=== PATIENT | male | born 1950 | race Caucasian/White ===

== ENCOUNTER 2023-10-31 16:12 | Outpatient (REF) | payer MEDICARE, SELFPAY ==
[2023-10-31 17:28] LABS: MANUAL DIFF FLAG NO
[2023-10-31 18:05] LABS: Basophils Percent Auto 0.3 % (0-2); Eosinophils Absolute Auto 0.2 X10*3/uL (0.0-0.4); Eosinophils Percent Auto 3.3 % (0-4); Hematocrit 40.6 % (42.0-52.0); Hemoglobin 13.5 g/dl (14.0-18.0); Imm Gran Abs Auto 0.01 X10*3/uL (0.00-0.03); Imm Gran Pct Auto 0.2 % (0.0-0.4); Lymphocytes Absolute Auto 2.6 X10*3/uL (1.2-4.9); Lymphocytes Percent Auto 45.3 % (20-40); Mean Corpuscular HGB Conc 33.3 g/dl (31.0-36.0); Mean Corpuscular Hemoglobin 30.6 pg (27.0-33.0); Mean Corpuscular Volume 92.1 fL (80.0-98.0); Mean Platelet Volume 10.2 fL (9.4-12.4); Monocytes Absolute Auto 0.3 X10*3/uL (0.1-1.2); Monocytes Percent Auto 5.9 % (2-11); Neutrophils Absolute Auto 2.6 x10*3/uL (2.0-8.3); Platelet Count 150 X10*3/uL (160-400); Red Blood Count 4.41 X10*6/uL (4.60-5.80); Red Cell Distribution Width 14.1 % (11.0-16.0); White Blood Count 5.8 X10*3/uL (4.8-10.8)
[2023-10-31 18:50] LABS: Alanine Aminotransferase 26 U/L (0-40); Albumin Level 4.4 g/dL (3.5-5.0); Alkaline Phosphatase 82 U/L (39-117); Anion Gap 11 (12-20); Aspartate Amino Transferase 22 U/L (5-37); Blood Urea Nitrogen 16 mg/dL (9-16); Calcium 9.7 mg/dL (8.4-10.2); Carbon Dioxide 25 mmol/L (22-29); Chloride 108 mmol/L (96-108); Cholesterol 95 mg/dL (<200); Estimated Glomerular Filt Rate > 60; Glucose Random 81 mg/dL (60-115); HDL Cholesterol 37 mg/dL (>40); LDL Cholesterol Calculated 21 mg/dL (<100); Potassium 4.3 mmol/L (3.3-5.1); Sodium 140 mmol/L (135-145); Total Protein 7.7 g/dL (6.5-8.0); Triglycerides 185 mg/dL (<150)
[2023-10-31 18:51] LABS: TSH reflex Free T4 1.78 uIU/mL (0.32-4.0)
[2023-10-31 19:25] LABS: PSA,Total (Free>4and<10) 0.78 ng/mL (0.00-4.00)
[2023-11-01 04:58] LABS: ~HepC Num1 0.15 S/CO (0.00-0.79); ~Hepatitis C Antibody Nonreactive (Nonreactive)
[2023-11-01 05:17] LABS: Estimated Average Glucose 126 mg/dL
== END 2023-10-31 16:13 | disposition home or self-care (01) ==
LOC: HO.CHCLDS 16:12
PROVIDERS: Visit Provider Internal Medicine
DX: E78.2 Mixed hyperlipidemia (principal); Z12.5 Encounter for screening for malignant neoplasm of prostate; Z13.1 Encounter for screening for diabetes mellitus
CPT/HCPCS: 36415; 80053; 80061; 83036; 84153; 84443; 85025; 86803

== ENCOUNTER 2024-03-08 10:13 | Outpatient (AMB) | payer OTHER, SELFPAY ==
--- NOTE | 2024-03-08 08:01 | A.OFFVIS_ITS ---
Intake Visit Reasons: LDCT Allergies No Known Allergies [No Known Allergies*] Allergy (Unverified 11/07/19 19:07) none Allergy (Unknown, Uncoded 07/04/18 00:00) HPI HPI LDCT: Details: Initial visit for this 73yo smoker with a 30PYH. Patient started smoking at age 13 for 60 years at 1/2ppd. . Reports rare marijuana use. Denies second hand smoke exposure. Denies exposure to chemicals or substances like asbestos. . Denies known family history of lung cancer. Denies personal history of cancers. . Denies chest CT in last year. Prior LDCT 09/05/16 Lung RADS 2 . Denies recent travel outside the [place]. Denies recent respiratory illness or recent hospitalization for respiratory issues. . Denies fever, chills, new/worsening cough, hemoptysis, hoarseness or dysphagia. Denies significant chest pain, significant dyspnea or unintentional weight loss. Patient Lung Cancer Screening Questionnaire reviewed with patient by provider. . Shared Decision Making Completed. Patient meets criteria. Discussed in detail with patient, the risk vs benefit of LDCT screening. Patient consents to proceed with scan. Discussed smoking cessation. [facility] Medical History (Updated 03/08/24 @ 10:32 by Marie Medina PA-C) Hyperlipidemia Hypertension Mild emphysema Personal history of nicotine dependence Surgical History (Updated 02/08/24 @ 08:47 by Marie Medina PA-C) History of colonoscopy Social History (Updated 03/08/24 @ 10:33 by Marie Medina PA-C) Alcohol intake: current Alcohol intake frequency: does not drink Patient Tobacco Use Status: Current everyday Tobacco user Years Smoked: (onset 12yo, 1/2ppd x 60yrs, 30pyh) Assessment & Plan Assessment & Plan (1) Personal history of nicotine dependence: Comment: (onset 12yo, 1/2ppd x 60yrs, 30pyh) Code(s): Z87.891 - Personal history of nicotine dependence Category: Medical Plan: - SDM visit completed today in office. - Patient meets criteria for LDCT for lung cancer screening purposes and is asymptomatic. - Smoking cessation counseling offered. Patients can always call [phone]. - Will arrange for a LDCT scan of the chest for screening purposes at [facility]. - Risks, benefits, and alternatives were discussed in detail and the patient agrees to proceed. - Risks discussed include but are not limited to: radiation exposure, anxiety during testing and while awaiting results, false negatives, false positives and possibility of additional intervention such as further imaging or surgical procedures for benign disease. - Benefits are obviously detection of lung cancer at an early stage which can lead to improved outcomes. - Discussed the importance of screening program compliance with adherence to yearly LDCT scan as scheduled - or sooner interval scans for personalized screening regimen. - Discussed follow up plan. Our office will send a letter discussing results and if needed set up phone call and office visit based on CT findings. - Patient educated on results categorization and the management decisions for suspicious findings potentially found on the screening LDCT scan. Any patient with a Lung RADS score of 3 or 4 will be reviewed by a multidisciplinary team at [facility] to form a plan of action in regards to scan findings. - If further work up is warranted for a suspicious lung finding this will be followed by the Lung Cancer Screening program in conjunction with the Thoracic Surgery Department at [facility]. - A copy of the office note and LDCT will be sent to the patient's PCP - as well as documentation on any associated further plans of care. - Incidental findings on LDCT are the PCP's responsibility. These findings are indicated with an S finding on the LDCT Assessment. A note discussing the findings will be sent to the PCP who is then responsible for further management. - All questions answered.? Coding Level of Care Code Lung Cancer Screening G0296 Diagnoses Personal history of nicotine dependence Z87.891
== END 2024-03-08 11:07 | disposition home or self-care (01) ==
PROVIDERS: Visit Provider Physician Assistant Medical
DX: Z87.891 Personal history of nicotine dependence (principal)
CPT/HCPCS: G0296

== ENCOUNTER 2024-03-08 10:45 | Outpatient (REF) | payer OTHER, SELFPAY ==
--- NOTE | ~2024-03-08 | CT_ITS ---
CLINICAL HISTORY: Z87.891 - Personal history of nicotine dependence CT lung cancer screening (LDCT) Comparison: CT/SR - CT CHEST SCREENING - 09/05/16 14:14 EDT Technique: Axial CT images of the chest using low-dose technique. Referring provider counseled the patient on shared decision-making for LDCT screening. Additional counseling was provided on smoking cessation. Effective radiation dose total: DLP 39.2 mGycm, CTDIvol 1.2 mGy. Findings: The prior CT report is not available for review. Lung: Mild emphysema. 2 mm nodule of the left upper lobe series 4, image 30. Coronary artery calcifications: Moderate Limited upper abdomen: Unremarkable Other: None Impression: LungRADS 2 - Benign Appearance: Continue annual screening with low dose Chest CT in 12 months. ##L2# Category 1: Normal; continue annual screening Category 2: Benign appearance or behavior, continue annual screening Category 3: Probably benign, [address] recommended Category 4A: Suspicious, [address] recommended; may consider PET/CT Category 4B: Suspicious, Additional diagnostics and/or tissue sampling recommended Category 4X: Suspicious, Additional diagnostics and/or tissue sampling recommended Category 0: Recalls (incomplete screen due to Incomplete coverage, Noise, Respiratory motion, Expiration, Obscured by acute abnormality) This document has been electronically signed by: Maria Luisa Cohen MD on 03/08/2024 17:13:49
== END 2024-03-08 10:46 | disposition home or self-care (01) ==
LOC: HO.CT 10:45
PROVIDERS: Visit Provider Physician Assistant Medical
DX: Z12.2 Encounter for screening for malignant neoplasm of respiratory organs (principal); Z87.891 Personal history of nicotine dependence
CPT/HCPCS: 71271; G0296

== ENCOUNTER → 2024-03-08 10:51 | Outpatient (BNV) | payer OTHER, SELFPAY | PROVIDERS: Visit Provider Nuclear Medicine | DX: Z87.891 Personal history of nicotine dependence (principal) | CPT/HCPCS: 71271 ==

== ENCOUNTER 2024-12-27 18:46 | Emergency (ER) | payer OTHER, SELFPAY ==
--- OUTSIDE RECORDS SUMMARY | 2024-12-25 19:50 | XMS_ITS | Continuity of Care Document ---
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 Name Role Phone Brianna Newby MD, Sandro Primary Care Phys ician [place] [facility] [place] 12/25/24 - 12/25/[address] [id number]- Encounter Diagnosis Weakness(Final) - 12/25/24 Discharge Disposition: A-D/C Home Attending Physician: Pastor Hernandez DO Admitting Physician: Pastor Hernandez DO Referring Physician: Not on Staff, Referring MD Encounter Type: Disch ES Allergies, Adverse Reactions, Alerts No Known Allergies Immunizations Given and Recorded Vaccine Date Status Refusal Reason SARS-CoV-2 (COVID-19) mRNA BNT-162b2 vac 10/27/20 Recorded SARS-CoV-2 (COVID-19) mRNA BNT-162b2 vac 10/05/20 Recorded zoster vaccine, inactivated 03/27/19 Recorded zoster vaccine, inactivated 11/29/18 Recorded pneumococcal 23-valent vaccine 11/29/18 Recorded pneumococcal 23-valent vaccine 12/07/01 Given Zoster Vaccine Live 07/28/16 Recorded Zoster Vaccine Live 1 12/23/14 Given pneumococcal 13-valent vaccine 04/27/16 Recorded influenza virus vaccine, inactivated 11/16/15 Doc rded influenza virus vaccine, inactivated 2 12/23/14 Gi amairani influenza virus vaccine, inactivated 3 11/26/13 Gi amairani influenza virus vaccine, inactivated 4 12/16/10 Gi amairani influenza virus vaccine, inactivated 5 11/09/09 Gi amairani influenza virus vaccine, inactivated 6 02/26/09 Gi amairani influenza virus vaccine, inactivated 7 12/07/07 Gi amairani influenza virus vaccine, inactivated 12/01/06 Give n influenza virus vaccine, inactivated 8 01/07/03 Gi amairani influenza virus vaccine, inactivated 9 01/07/95 Gi amairani tetanus/diphtheria/pertussis, acel(Tdap) 10/15/15 Recorded tetanus/diphtheria/pertussis, acel(Tdap) 03/29/11 Given hepatitis B adult vaccine 11 12/07/07 Given hepatitis B adult vaccine 12 07/02/07 Given hepatitis B adult vaccine 13 04/30/07 Given hepatitis B adult vaccine 14 12/07/04 Given tetanus-diphtheria toxoids (Td) 15 12/07/01 Given 1Result Comment: [12/23/2014] ORDERED BY DR. SOOD 2Result Comment: [12/23/2014] ORDERED BY DR. SOOD 3Result Comment: [11/27/2013] Ordered by Michael 4Anicole Note: VIS 09/14/10 GIVEN 5Admin Note: ADMINISTERED BY R.NCollette FLUZOWENDY 6Admin Note: --VIS 11/21/08 GIVEN 7Admin Note: 08/19/2008 given 8Admin Note: given by another practice 9Admin Note: ADMINISTERED BY RN 10Admin Note: boostrix ([facility]) VIS 01/08/08 11Admin Note: VIS 09/06/06 given 12Admin Note: VIS 08/20 #2 13Admin Note: VIS 08/20 #1 14Admin Note: ADMINISTERED BY RN 15Admin Note: ADMIN. BY RN Medications Acetaminophen 0 Refills, Maintenance, 03/03/20 2:46:00 PM EST, Partial fill upon patient request if the prescription is for a schedule II opioid drug. Start Date: 03/03/20 Status: Ordered Medication Dispense Status: Completed Total Allowed Fills: 1 Fills Dispensed: 0 Aerochamber Maintenance, 03/03/20 2:46:00 PM EST, Supply Start Date: 03/03/20 Status: Ordered Medication Dispense Status: Completed Total Allowed Fills: 1 Fills Dispensed: 0 aspirin 81 mg oral delayed release tablet 81 mg, 1, tablet, By Mouth, Daily, # 30 tablet, Refills 0, Maintenance, 03/03/20 2:47:00 PM EST, Partial fill upon patient request if the prescription is for a schedule II opioid drug. Start Date: 03/03/20 Status: Ordered Medication Dispense Status: Completed Quantity: 30.0 Unit: tablet Total Allowed Fills: 1 Fills Dispensed: 0 Colace sodium 100 mg oral capsule 100 mg, 1, capsule, By Mouth, 2 times a day, PRN, # 60 capsule, Refills 2, Tot. Refills 2, Maintenance, for constipation, 07/14/15 10:10:33 AM EDT, Route to Pharmacy Electronically, [facility]/pharmacy #[id number] Start Date: 07/14/15 Stop Date: 10/12/15 Status: Ordered Medication Dispense Status: Completed Quantity: 60.0 Unit: capsule Total Allowed Fills: 3 Fills Dispensed: 0 Combivent Respimat CFC free 100 mcg-20 mcg/inh inhalation aerosol 1 puffs, Inhalation, 4 times a day, PRN Wheezing/Shortness of Breath, # 1 each, 5 Refills, Maintenance, 02/24/15 10:32:46 AM EST, Aerosol, [facility]/pharmacy #[id number], 1 puffs Inhalation 4 times a day,x30 days,PRN:Wheezing/Shortness of Breath Start Date: 02/24/15 Stop Date: 08/23/15 Status: Ordered Medication Dispense Status: Completed Quantity: 1.0 Unit: each Total Allowed Fills: 6 Fills Dispensed: 0 cyclobenzaprine 10 mg oral tablet 10 mg, 1, tablet, By Mouth, Daily at bedtime, PRN, # 30 tablet, Refills 2, Tot. Refills 2, Maintenance, as needed for spasm/pain in neck, 07/14/15 9:44:12 AM EDT, Route to Pharmacy Electronically, [facility]/pharmacy #[id number] Start Date: 07/14/15 Stop Date: 10/12/15 Status: Ordered Medication Dispense Status: Completed Quantity: 30.0 Unit: tablet Total Allowed Fills: 3 Fills Dispensed: 0 docusate sodium 100 mg oral capsule 1 capsule = 100 mg, By Mouth, 2 times a day, PRN for constipation, # 60 capsule, 0 Refills, Maintenance, 03/03/20 2:47:00 PM EST, Capsule, Partial fill upon patient request if the prescription is for a schedule II opioid drug. Start Date: 03/03/20 Status: Ordered Medication Dispense Status: Completed Quantity: 60.0 Unit: capsule Total Allowed Fills: 1 Fills Dispensed: 0 famotidine 20 mg oral tablet 20 mg, 1, tablet, By Mouth, 2 times a day, Refills 0, Maintenance, 03/03/20 2:48:00 PM EST, Partial fill upon patient request if the prescription is for a schedule II opioid drug. Start Date: 03/03/20 Status: Ordered Medication Dispense Status: Completed Total Allowed Fills: 1 Fills Dispensed: 0 Fiber Tabs 0 Refills, Maintenance, 03/03/20 2:49:00 PM EST, Partial fill upon patient request if the prescription is for a schedule II opioid drug. Start Date: 03/03/20 Status: Ordered Medication Dispense Status: Completed Total Allowed Fills: 1 Fills Dispensed: 0 gabapentin 100 mg oral capsule 100 mg, 1, capsule, By Mouth, 3 times a day, # 90 capsule, Refills 0, Tot. Refills 0, Maintenance, 07/07/24 4:00:00 PM EDT, Route to Pharmacy Electronically, [facility], Partial fill upon patient request if the prescription is for a schedule II opioid drug., 162, cm, 07/07/24 14:58:00 E DT, Height, 65.5, kg, 07/02/24 19:02:00 EDT, Dry Weight Start Date: 07/07/24 Stop Date: 08/06/24 Status: Ordered Medication Dispense Status: Completed Quantity: 90.0 Unit: capsule Total Allowed Fills: 1 Fills Dispensed: 0 Lifeline Lifeline, See Instructions, # 1 each, Refills 0, Tot. Refills 0, Maintenance, DX: LE weakness/falls/dengerative OA lumbar spine, 12/23/14 10:04:10 AM EST, Compound Start Date: 12/23/14 Status: Ordered Medication Dispense Status: Completed Quantity: 1.0 Unit: each Total Allowed Fills: 1 Fills Dispensed: 0 melatonin 5 mg oral capsule 1 capsule = 5 mg, By Mouth, Daily at bedtime, 0 Refills, Maintenance, 03/03/20 2:50:00 PM EST, Partial fill upon patient request if the prescription is for a schedule II opioid drug. Start Date: 03/03/20 Status: Ordered Medication Dispense Status: Completed Total Allowed Fills: 1 Fills Dispensed: 0 Multivitamin Daily, 0 Refills, Maintenance, 03/03/20 2:51:00 PM EST, Partial fill upon patient request if the prescription is for a schedule II opioid drug. Start Date: 03/03/20 Status: Ordered Medication Dispense Status: Completed Total Allowed Fills: 1 Fills Dispensed: 0 Narcan 4 mg/0.1 mL nasal spray = 4 mg, Once, 0 Refills, Maintenance, 03/03/20 2:51:00 PM EST, Partial fill upon patient request if the prescription is for a schedule II opioid drug. Start Date: 03/03/20 Status: Ordered Medication Dispense Status: Completed Total Allowed Fills: 1 Fills Dispensed: 0 Nutritional Supplements See Instructions, # 90 each, Refills 11, Tot. Refills 11, Maintenance, DX: abnormal weight loss. Chronic depression. 32 pound weight loss in past 12 months-unintentional. R63.4/F32.9. One can tid. Ensure, 12/23/14 10:01:56 AM EST, Compound Start Date: 12/23/14 Status: Ordered Medication Dispense Status: Completed Quantity: 90.0 Unit: each Total Allowed Fills: 12 Fills Dispensed: 0 ProAir HFA Inhalation, Every 6 hours, 0 Refills, Maintenance, 03/03/20 2:51:00 PM EST, Partial fill upon patient request if the prescription is for a schedule II opioid drug. Start Date: 03/03/20 Status: Ordered Medication Dispense Status: Completed Total Allowed Fills: 1 Fills Dispensed: 0 rosuvastatin 20 mg oral tablet 1 tablet = 20 mg, By Mouth, Daily, # 30 tablet, 0 Refills, Maintenance, 03/03/20 2:52:00 PM EST, Tablet, Partial fill upon patient request if the prescription is for a schedule II opioid drug. Start Date: 03/03/20 Status: Ordered Medication Dispense Status: Completed Quantity: 30.0 Unit: tablet Total Allowed Fills: 1 Fills Dispensed: 0 traZODone 50 mg oral tablet 25 mg, By Mouth, Daily at bedtime, PRN, Anxiety/Insomnia/ Mild agitation, # 30 capsule, Refills 0, Tot. Refills 0, Maintenance, Insomnia, 07/07/24 4:00:00 PM EDT, Route to Pharmacy Electronically, [facility], Partial fill upon patient request if the prescription is for a schedule II opioid drug., 162, cm, 07/07/24 14:58:00 EDT, Height, 65.5, kg, 07/02/24 19:02:00 EDT, Dry Weight Start Date: 07/07/24 Stop Date: 08/06/24 Status: Ordered Medication Dispense Status: Completed Quantity: 30.0 Unit: capsule Total Allowed Fills: 1 Fills Dispensed: 0 Voltaren 1% topical gel 1 application, Topically, 4 times a day, # 100 Gm, 0 Refills, Maintenance, 03/03/20 2:52:00 PM EST, Gel, Partial fill upon patient request if the prescription is for a schedule II opioid drug. 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 Active Carpal tunnel syndrome-left release 1 Confirmed 08/08/11 Active Degenerative disc disease, lumbar 2 Confirmed 07/16/10 Active DVT - Deep vein thrombosis 3 Confirmed Active Dyspepsia Confirmed Active Generalized osteoarthritis of multiple sites 4 Confirmed Active H/O: anemia Confirmed Active Opioid dependence Confirmed 05/06/13 Active Osteopenia Confirmed Active Positive PPD 5 Confirmed Active Renal insufficiency syndrome Confirmed Active Spondylosis, lumbosacral Confirmed 05/21/09 Active Tobacco user Confirmed Active Tubular adenoma of sigmoid colon--repeat 5 yrs Confirmed 10/08/10 Active 1right hand > left 2Progressive DDD at L5/S1 with moderate forminal narrowing (since 2008) 3January 2004 4right hand and shoulder bilaterally--right >left 5Tx'd x 12 months, 1990 at [facility] Results Radiology Reports * Exam Date Time Procedure Performing Provider Status 12/25/24 2:[address] Head/Brain W/O Contrast Auth (Verified) Notes: (CT Head/Brain W/O Contrast) Reason For Exam: confusion;Other: RESULT: CT Head/Brain W/O Contrast CT Head/Brain W/O Contrast INDICATION: Hx of Present Illness: FTT difficulty w ADLS per visting nurse. Pt unable to sit up today and walk, found to be soiled.Pt has no complaints, asking when he can leave.Pt doesn't recall events that brought him in nor does he remember the names of his grandaughterswhoassist w care; Reason:Other:; confusion; Clinical Question(s): Subarachnoid Hemorrhage TECHNIQUE: Noncontrast head CT using axial technique and reconstructed in axial and coronal planes.Iterative reconstruction techniques are used to optimize dose and image quality. CTDIvol Head: 46.70 mGy, DLP Head: 965 mGy*cm. COMPARISON: 06/28/2024. FINDINGS: [employer] view findings, lines and tubes: None. BRAIN AND EXTRA-AXIAL SPACES: No parenchymal hemorrhage, midline shift, or mass effect. Nunez-white matter differentiation is wellpreserved. No acute infarct. Negative insular ribbon sign. Atherosclerotic vascular calcification of the carotid arteries but negative hyperdense vessel sign. Moderate prominence of the ventricles and sulci consistent with parenchymal volume loss. Moderate low-density white matter changes. No subarachnoid hemorrhage. No subdural or epidural collection. CALVARIUM, SKULL BASE, AND SOFT TISSUES: No fractures or suspicious bony lesions. The paranasal sinuses and mastoid air cells are clear. Visualized orbits and globes are intact. The extracranial soft tissues are unremarkable. IMPRESSION: No acute intracranial pathology. WSN: [id number] Ordering Physician: Yung Nguyen Dictated By: Burke Moreno MD Dictated Date/Time: 12/25/24 2:49 pm Reviewed By: Burke Moreno MD Signed By: Burke Moreno MD Signed Date/Time: 12/25/24 2:49 pm Transcribed By: RUBY Transcribed Date/Time: 12/25/24 2:46 pm * Exam Date Time Procedure Performing Provider Status 12/25/24 2:01 PM Chest 2 Views Frontal and Lat Auth (Verified) Notes: (Chest 2 Views Frontal and Lat) Reason For Exam: Shortness of Breath, Fever;Other: RESULT: Chest 2 Views Frontal and Lat Chest 2 Views Frontal and Lat Hx of Present Illness: FTT difficulty w ADLS per visiting nurse. Pt unable to sit up today and walk, found to be soiled. COMPARISON: 06/12/2014. FINDINGS: LINES AND TUBES: None. LUNGS AND PLEURA: Clear lungs. Normal pulmonary vascularity. No evidence of pleural effusion. No pneumothorax. HEART, MEDIASTINUM AND EKATERINA: Heart is normal in size. Normal mediastinal and hilar contour. BONES AND SOFT TISSUES: No acute abnormality. IMPRESSION: No acute abnormality. WSN: [id number] Ordering Physician: Yung Nguyen Dictated By: Moisés Jones MD Dictated Date/Time: 12/25/24 2:03 pm Reviewed By: Moisés Jones MD Signed By: Moisés Jones MD Signed Date/Time: 12/25/24 2:03 pm Transcribed By: RUBY Transcribed Date/Time: 12/25/24 2:02 pm Vital Signs Most recent to oldest [Reference Range]: 1 2 3 Oxygen Saturation [94-100 %] 99 % (12/25/24 5:06 PM) 99 % (12/25/24 1:05 PM) Pulse Rate [55-90 bpm] 69 bpm (12/25/24 5:06 PM) 75 bpm (12/25/24 1:05 PM) Blood Pressure [90-138/55-84 mm Hg] 112/75mm Hg (12/25/24 5:06 PM) 101/72mm Hg (12/25/24 1:05 PM) Respiratory Rate [16-30 br/min] 16 br/min (12/25/24 7:48 PM) 16 br/min (12/25/24 5:06 PM) 16 br/min (12/25/24 1:05 PM) Temperature [96.8-100.4 DegF] 98.7 DegF (12/25/24 5:06 PM) 98.1 DegF (12/25/24 1:05 PM) Mode of Delivery (Oxygen) Room air (12/25/24 5:06 PM) Room air (12/25/24 1:05 PM) Blood pressure sites Arm, left (12/25/24 5:06 PM) Arm, left (12/25/24 1:05 PM) Temperature Route Oral (12/25/24 5:06 PM) Oral (12/25/24 1:05 PM) Social History Social History Type Response Smoking Status Current every day sm oker; Type: Cigarettes; Tobacco use times per day: 1/2 PPD; Started at age: 13; entered on: 12/23/14 Sex Sex Representation Male (finding) Status N/A Note * Pastor Hernandez DO: PERFORM Event Display: Patient Education Leaflets Authored Date: [id number] Weakness or Fatigue With Uncertain Cause ?? [id number] Weakness or Fatigue With Uncertain Cause Weakness and fatigue are different conditions. Sometimes, people think they're weak, when in reality, they are fatigued. It's important to understand the difference between weakness and fatigue, so that you can get the right help for how you're feeling. ??? Weakness. This is when your muscles aren't as strong as they should be. It can develop quickly or slowly over time. It may affect all of the muscles in the body (generalized weakness) or only onepart of the body. Some causes of generalized weakness include a decrease in physical fitness, loss of muscle tissue from long periods of inactivity, abnormal electrolyte levels, and use of certain medicines, such as corticosteroids. Some causes of weakness in specific muscles include strokes, nervedamage, an injured disk in the spine, and neurological disorders, such as multiple sclerosis. Symptoms of weakness depend on which muscles are affected. ??? Fatigue. This is when you feel really tired, worn out, or low on energy. It's when you feel a strong need to rest or have so little energy that doing any activity is difficult. It can happen if you're too active or not active enough, stressed, don't get enough good quality sleep, or have an unhealthy diet. Other causes of fatigue include viral infections, emotional problems, especially depression, and severe illnesses, such as heart failure and cancer. Side effects from medicine may also cause fatigue. Fatigue is usually a sign that something else might be going on. Based on your exam today, the exact cause of your symptoms is not clear. But your symptoms do not seem to be a sign of a serious illness at this time. Keep an eye on your symptoms and get medical advice as directed below. Home care ??? Rest at home today. Don't overexert yourself. ??? Take any medicine as prescribed. ??? For the??next few days, drink extra fluids unless your doctor wants you to restrict fluids for other reasons. Don't skip meals. ??? Unless otherwise directed, continue to take any prescription medicines. ??? Contact your doctor if you have any questions or concerns. ?? Follow-up care Follow up with your doctor, or as advised. ?? When to get medical advice Call your doctor right away??if: ??? Symptoms get worse or new symptoms develop. ??? Symptoms don'tstart getting better within 2 days. ??? You have night sweats. ??? You have swollen lymph nodes. ??? You have pain. ??? You have a fever of 100.4?? F (38?? C) or higher, or as directed by your doctor. ?? Call 911 Call 911 if you have: ??? Pain in the chest, arm, neck, jaw, or upper back. ??? Trouble breathing. ??? Numbness or weakness of the face, one arm, or one leg. ??? Slurred speech, confusion, or??trouble speaking, walking, or seeing. ??? Blood in vomit or stool (black or red color). ??? Severe headache. ??? Loss of consciousness, such as fainting. ??? Loss of the ability to walk. ??? Weakness that becomes severe over a few days or less. ??? Difficulty raising your head while lying down. ?? Last Reviewed Date: 2024 00:00:00 ?? [id number] The [employer]. All rights reserved. This information is not intended as a substitute for professional medical care. Always follow your healthcare professional's instructions. ?? Patient Care team information Care Team Personnel Name: Sandro Cabrera MD Position: [facility] Outreach Member Role: PCP Address: [address] [place] [address] Telecom: Care Team Related Persons Name: JEFF BEJARANO Insurance Providers Guarantor name: [facility] Information #: 1 Payer: [facility] [employer] Payer Identifier: NA Member Number: [id number] Group Number: NA Subscriber Identifier: [id number] Relationship to Subscriber: self Coverage Type: Medicare Managed Care (Includes Medicare Advantage Plans) Coverage Verification Date: NA Telecom: NA Address: NA
--- NOTE | ~2024-12-27 | XR_ITS ---
CLINICAL HISTORY: Fever 2 view chest x-ray Comparison: None provided Findings: Hypoventilatory exam. No consolidation pleural effusion. Normal size heart. No acute fracture. IMPRESSION: 1. No acute findings. This document has been electronically signed by: Mariposa Pastor MD on 12/27/2024 22:20:56
[2024-12-27 19:00] VITALS: BP 125/70; PULSE 85; RESP 20; TEMP 36.9; O2SAT 98; BMI 26.6
--- NOTE | 2024-12-27 19:02 | ED.GENADULT ---
HPI - General Adult General Chief complaint: Urogenital-Male Stated complaint: Fever Time Seen by Provider: 12/27/24 20:54 History of Present Illness ED Provider: Matthew PERRY narrative: The patient is a 74-year-old male who I believe has some degree of intellectual disability known home. He has a MSWS who describes himself as the patient is ?surrogate. ? According to the surrogate the patient was taken to the emergency room at [facility] a few days ago for a ?wellness check. It is not clear to me who requested this wellness check nor for what reason. In any event the the patient apparently was considered well and was discharged from the emergency room at [facility]. The patient or the surrogate subsequently received a call from [facility] saying that there was a urinary tract infection present. The surrogate therefore brought the patient to the emergency department. My assumption is that the patient might have submitted a urine sample which ultimately has a positive culture. Here the patient is denying any urinary discomfort. The patient wears a diaper and the surrogate does not know if he has had increased urinary frequency but there has been no complaint of dysuria. There has been no fever, sweats, chills. Today the surrogate feels the patient had some increased sneezing but no other significant symptoms. Related Data Allergies Allergy/AdvReac Type Severity Reaction Status Date / Time No Known Allergies (No Known Allergy Verified 12/27/24 19:05 Allergies*) none Allergy Unknown Unknown Uncoded 12/27/24 19:05 Review of Systems Review of Systems: Yes all other systems are reviewed and are negative FORMERLY [facility], [facility] Past Medical History Medical History (Updated 12/27/24 @ 22:42 by Porfirio Castro MD) Hyperlipidemia Hypertension Mild emphysema Personal history of nicotine dependence Surgical History (Updated 02/08/24 @ 08:47 by Marie Medina PA-C) History of colonoscopy Social History Social History (Updated 03/08/24 @ 10:33 by Marie Medina PA-C) Alcohol intake: current Alcohol intake frequency: does not drink Patient Tobacco Use Status: Current everyday Tobacco user Years Smoked: (onset 12yo, 1/2ppd x 60yrs, 30pyh) Advance Directives: No Advance Directives Information Provided: No Do you have a plan to hurt others: No Plan Physical Exam ED Vital Signs: Vital Signs - 24 hr 12/27/24 19:00 12/27/24 20:16 12/27/24 22:51 Temperature 98.4 F 98.3 F 98.3 F Pulse Rate 85 84 77 Respiratory Rate 20 14 18 Blood Pressure 125/70 113/66 106/57 L Pulse Oximetry 98 95 97 Oxygen Delivery Method Room Air Room Air Room Air 12/27/24 22:59 Temperature 98.3 F Pulse Rate 77 Respiratory Rate 18 Blood Pressure 106/57 L Pulse Oximetry 97 Oxygen Delivery Method Room Air BMI result Body Mass Index 26.6 Const Other: The patient is a 74-year-old male who was awake, alert, pleasant, cooperative. He does not appear in acute distress. HENMT Other: The face is symmetrical. ?Mucous membranes moist. Eyes Other: Pupils are round equal, conjunctivae are clear, extraocular movements intact Neck Neck: Yes normal visual inspection, Yes full ROM, Yes no lymphadenopathy and Yes no JVD Resp Effort & Inspection: normal respiratory effort Auscultation: clear to auscultation bilaterally Cardio Rate: regular rate Rhythm: regular rhythm Heart sounds: S1 normal heart sound present and S2 normal heart sound present GI Other: Abdomen is soft and nontender Other: External genitalia is unremarkable. Skin Other: The skin is dry and unremarkable General skin exam: no rashes or lesions noted Neuro Other: The patient is awake and alert. He has a very pleasant demeanor. He seems somewhat intellectually limited. Cranial nerves are grossly intact. He has symmetrical strength in his extremities and seems to have no focal findings. Extrem Other: There is no calf swelling or tenderness. No asymmetry. No peripheral edema. Course Course Course Narrative: This is an RME: Additional HPI, ROS, PE not included below will be deferred to primary provider. RME assessment and note performed by: Lulú Choe PA-C This is a 87-mkqd-nav-male, with a hx of dementia, HLD, HTN, emphysema, who presents to the ER with a complaint of sneezing and ?UTI. Pt was seen [facility] on 12/25 where he was sent for a ?wellness check. Grading Machine Operator reporting that patient has hot water and heat were turned off therefore patient was brought to [facility] for a wellness check. Grading Machine Operator was told that he had a urinary tract infection however was not started on any antibiotics. Patient is well-appearing, sneezing multiple times during triage. Vital signs within normal limits. Attempted to look patient up in [facility] record however unable to find patient record. Plan: Basic labs, UA, viral swabs Medical Decision Making Medical Decision Making MDM Narrative: The patient is a very pleasant 74-year-old male who lives at home with the MSWS. The [facility] describes herself as the patient's ?surrogate. ? As far as I can tell they the patient is here today primarily because they received a call from the emergency room at [facility] where the patient was seen a couple of days ago. apparently they were told that the patient has a UTI. According surrogate the visit to [facility] was not prompted by any medical complaints but by some outside authorities request for a ?wellness check. The patient has not had any urinary discomfort or any fever, sweats, chills, back pain, nausea, vomiting. Here the patient looks clinically well and has a unremarkable vital signs. The patient is a circumcised male who denies any urinary symptoms and has a an unremarkable physical exam. His labs today show an unremarkable CBC including white count and differential and an unremarkable CRP. His urinalysis is somewhat abnormal. The urine for the urinalysis excess catheter. Conceivably attacks his catheter was not the best way to obtain a urine sample. Overall, given the patient has benign clinical appearance, his unremarkable labs, in his lack of any urinary symptoms I do not feel there was an indication for antibiotics for a possible UTI. The patient will be discharged to follow up with his regular doctor. I attempted to find records for the the patient at [facility] but there are too many [facility] and I could not find the patient in their system. Lab Data 12/27/24 19:13 12/27/24 19:13 Labs: Lab Results 12/27/24 12/27/24 Range/Units 19:13 21:34 WBC 6.4 (4.8-10.8) X10*3/uL RBC 3.96 L (4.60-5.80) X10*6/uL Hgb 11.8 L (14.0-18.0) g/dl Hct 36.8 L (42.0-52.0) % MCV 92.9 (80.0-98.0) fL MCH 29.8 (27.0-33.0) pg MCHC 32.1 (31.0-36.0) g/dl RDW 13.6 (11.0-16.0) % Plt Count 142 L (160-400) X10*3/uL MPV 9.7 (9.4-12.4) fL Immature Gran % (Auto) 0.3 (0.0-0.4) % Neut % (Auto) 49.1 (45-73) % Lymph % (Auto) 40.2 H (20-40) % Amelia % (Auto) 7.1 (2-11) % Eos % (Auto) 2.8 (0-4) % Baso % (Auto) 0.5 (0-2) % Lymph # (Auto) 2.6 (1.2-4.9) X10*3/uL Amelia # (Auto) 0.5 (0.1-1.2) X10*3/uL Eos # (Auto) 0.2 (0.0-0.4) X10*3/uL Baso # (Auto) 0.0 (0.0-0.2) X10*3/uL Abs Immat Gran (auto) 0.02 (0.00-0.03) X10*3/uL Absolute Neuts (auto) 3.1 (2.0-8.3) x10*3/uL Absolute Nucleated RBC 0.000 (0.0-0.012) X10*3/uL Nucleated RBC % (auto) 0.0 (0.0-0.2) /100WBC Sodium 141 (135-145) mmol/L Potassium 4.2 (3.3-5.1) mmol/L Chloride 106 (96-108) mmol/L Carbon Dioxide 25 (22-29) mmol/L Anion Gap 14 (12-20) BUN 22 H (9-16) mg/dL Creatinine 1.35 (0.5-1.4) mg/dL Estim Creat Clear Calc 41.7 Estimated GFR 52 Random Glucose 93 (60-115) mg/dL Calcium 9.1 D (8.4-10.2) mg/dL Total Bilirubin 0.5 (0.0-1.0) mg/dL Direct Bilirubin 0.1 (0.0-0.5) mg/dL AST 25 (5-37) U/L ALT 20 (0-40) U/L Alkaline Phosphatase 100 (39-117) U/L C-Reactive Protein 0.25 (< or = 0.50) mg/dL Total Protein 7.3 (6.5-8.0) g/dL Albumin 4.2 (3.5-5.0) g/dL Urine Color Yellow Urine Appearance Clear Urine pH 6.0 (5.0-9.0) Ur Specific Leon >= 1.030 H (1.005-1.025) Urine Protein Negative (Neg-Trace) mg/dL Urine Glucose (UA) Negative (Negative) mg/dL Urine Ketones Negative (Negative) mg/dL Urine Blood Negative (Negative) Urine Nitrite Negative (Negative) Ur Leukocyte Esterase Small (1+) H (Negative) Urine RBC 0-2 (0-2) /HPF Urine WBC 21-50 H (0-5) /HPF Ur Squamous Epith Cells 0-2 (0-2) /HPF Urine Bacteria None Seen (None Seen) Hyaline Casts 0-2 (0-2) /LPF Influenza Type A (PCR) NEGATIVE (Negative) Influenza Type B (PCR) NEGATIVE (Negative) RSV RNA Qual (PCR) NEGATIVE (Negative) SARS-CoV-2 RNA (RT-PCR) NEGATIVE (Negative) Discharge Plan Discharge Clinical Impression: Abnormal urinalysis Patient Disposition: Home, Self-Care Additional Instructions: Your urinalysis today is somewhat abnormal but since you are not having symptoms of a urinary tract infection I am not recommending antibiotics. Please plan on making a follow up appointment with your regular doctor to discuss this question further. If at any point you feel significantly worse, if you develop discomfort with the urination or a sense of increased frequency of urination or increased urgency develop flank pain or a fever or vomiting, return to the emergency room for additional care. Referrals: Sandro Cabrera MD [Primary Care Provider, Medical] Interventions: ED Discharge Assessment Last Done: 12/27/24 22:59 Discharge Date/Time: 12/27/24 23:00 Print Language: Albanian
[2024-12-27 19:17] LABS: MANUAL DIFF FLAG NO
[2024-12-27 19:19] LABS: Hematocrit 36.8 % (42.0-52.0); Hemoglobin 11.8 g/dl (14.0-18.0); Imm Gran Abs Auto 0.02 X10*3/uL (0.00-0.03); Imm Gran Pct Auto 0.3 % (0.0-0.4); Lymphocytes Absolute Auto 2.6 X10*3/uL (1.2-4.9); Mean Corpuscular HGB Conc 32.1 g/dl (31.0-36.0); Mean Corpuscular Hemoglobin 29.8 pg (27.0-33.0); Mean Corpuscular Volume 92.9 fL (80.0-98.0); NRBC Abs Auto 0.000 X10*3/uL (0.0-0.012); NRBC Pct Auto 0.0 /100WBC (0.0-0.2); Platelet Count 142 X10*3/uL (160-400); Red Blood Count 3.96 X10*6/uL (4.60-5.80); White Blood Count 6.4 X10*3/uL (4.8-10.8)
[2024-12-27 19:36] LABS: Alanine Aminotransferase 20 U/L (0-40); Albumin Level 4.2 g/dL (3.5-5.0); Alkaline Phosphatase 100 U/L (39-117); Anion Gap 14 (12-20); Aspartate Amino Transferase 25 U/L (5-37); Blood Urea Nitrogen 22 mg/dL (9-16); Calcium 9.1 mg/dL (8.4-10.2); Carbon Dioxide 25 mmol/L (22-29); Chloride 106 mmol/L (96-108); Creatinine Clr Calc Pharmacy 41.7; Estimated Glomerular Filt Rate 52; Potassium 4.2 mmol/L (3.3-5.1); Sodium 141 mmol/L (135-145); Total Protein 7.3 g/dL (6.5-8.0)
[2024-12-27 19:55] LABS: Resp Syncy Virus RNA Qual PCR NEGATIVE (Negative); SARS COV2 PCR INHOUSE NEGATIVE (Negative)
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
--- OUTSIDE RECORDS SUMMARY | 2024-12-27 20:15 | XMS_ITS | Encounter Summary ---
Author Organization [employer] Address [address] [place] [address] Care Team Providers Care Cane Loader Name Role Phone Sandro Cabrera MD Primary Care Prov ider Encounter Details Date Type Department Care Team (Late st Contact Info) Description 12/26/2024 Telephone [facility] [address] [place], [place] [phone] Sandro Cabrera MD [address] [place], [place] [phone] Social History Tobacco Use Types Packs/Day Years [...] is your housing situation today? I have veronica nieves 10/31/[address] you [...] encounter Miscellaneous Notes * Telephone Encounter - Bonnie Alan MA - 12/26/2024 2:00 PM EST Called pt to schedule appt with Dr. Reed. Pt didn't answer, lvm to call office back. documented in this encounter Plan of Treatment Upcoming Encounters Date Type Department Care Team (Late st Contact Info) Description 01/27/2025 10:15 AM EST Telemedicine [facility] MED & PEDS [address] [place] [address] Sandro Cabrera MD [address] [place] [address] documented as of this encounter Visit Diagnoses Not on filedocumented in this encounter Additional Health Concerns Assessment Noted Time PHQ-9 Depression Total Score: 0 10/31/19 24 3:51 PM EDT documented as of this encounter Care Teams Cane Loader Relationship Specialty Start Date End Date Sandro Cabrera MD [address] [place] [address] PCP - General Internal Medicine 07/21/19 [facility] 07/11/24 documented as of this encounter
--- OUTSIDE RECORDS SUMMARY | 2024-12-27 20:15 | XMS_ITS | Encounter Summary ---
Author Organization [employer] Address [address] [place] [address] Care Team Providers Care Porcelain Enamel Laborer Name Role Phone Sandro Cabrera MD Primary Care Prov ider Reason for Visit * Reason Comments Med Refill Encounter Details Date Type Department Care Team (Late Contact Info) Description 03/20/2023 Refill [facility] MEDICINE [address] [place] [address] Sandro Cabrera MD [address] [place] [address] Vitamin deficiency Social History Tobacco Use Types Packs/Day Years Used Date Smoking Tobacco: Never Assessed Sex and Gender Information Value Date Recorded Sex Assigned at Male 12/20/2021 10:30 AM EDT Legal Sex Male 10:30 AM EDT Gender Identity Male 12/20/2021 10:30 AM EDT Sexual Orientation Straight 12/20/2021 10 :30 AM EDT documented as of this encounter Plan of Treatment Upcoming Encounters Date Type Department Care Team (Late Contact Info) Description 01/27/2025 10:15 AM EST Telemedicine [facility] PEDS [address] [place] [address] Sandro Cabrera MD [address] [place] [address] documented as of this encounter Visit Diagnoses Diagnosis Vitamin deficiency Unspecified vitamin deficiency documented in this encounter Care Teams Porcelain Enamel Laborer Relationship Specialty Start Date End Date Sandro Cabrera MD [address] [place] [address] PCP - General Internal Medicine 07/21/19 [facility] 07/11/24 documented as of this encounter
--- OUTSIDE RECORDS SUMMARY | 2024-12-27 20:15 | XMS_ITS | Encounter Summary ---
Author Organization [employer] Address [address] [place] [address] Care Team Providers Care Armature Repairer Name Role Phone Sandro Cabrera MD Primary Care Prov ider Reason for Visit * Reason Onset Date Comments Med Refill 11/04/2024 Encounter Details Date Type Department Care Team (Late st Contact Info) Description 11/04/2024 Telephone [facility] MEDICINE [address] [place] [address] Sandro Cabrera MD [address] [place], [place] [phone] Med Refill Social History Tobacco Use Types Packs/Day Years [...] encounter Miscellaneous Notes * Telephone Encounter - Tish Frye LPN - 11/04/2024 12:55 PM EDT Please review request below.medication is not on med list * Telephone Encounter - Nereyda Hill - 11/04/2024 12:47 PM EDT TC from pt requesting medication refill. Medications needing refill : - A+b Diaper rash cream To be sent to: - [facility] pharmacy documented in this encounter Plan of Treatment Upcoming Encounters Date Type Department Care Team (Late st Contact Info) Description 01/27/2025 10:15 AM EST Telemedicine [facility] MED & PEDS [address] [place] [address] Sandro Cabrera MD [address] [place] [address] documented as of this encounter Visit Diagnoses Not on filedocumented in this encounter Additional Health Concerns Assessment Noted Time PHQ-9 Depression Total Score: 0 10/31/19 24 3:51 PM EDT documented as of this encounter Care Teams Armature Repairer Relationship Specialty Start Date End Date Sandro Cabrera MD [address] [place] [address] PCP - General Internal Medicine 07/21/19 [facility] 07/11/24 documented as of this encounter
--- OUTSIDE RECORDS SUMMARY | 2024-12-27 20:15 | XMS_ITS | Encounter Summary ---
Author Organization [employer] Address [address] [facility] [address] [place] [address] Care Team Providers Care Analysis Intern Name Role Phone Sandro Cabrera MD Primary Care Prov ider Reason for Visit * Reason Onset Date Comments Durable Medical Equipment 10/15/2024 Encounter Details Date Type Department Care Team ([facility] st Contact Info) Description 10/15/2024 Telephone [facility] [address] [place], [place] [phone] Sandro Cabrera MD [address] [place] [address] Durable Medical Equipment Social History Tobacco Use Types Packs/Day Years [...] encounter Miscellaneous Notes * Telephone Encounter - Darwin Palacio - 10/15/2024 9:28 AM EDT Tc from [facility] (on HIPAA) requesting for washable pads to be sent to [facility] due to pt receiving the wrong DME> Any questions contact jackson at [phone] documented in this encounter Plan of Treatment Upcoming Encounters Date Type Department Care Team (Late st Contact Info) Description 01/27/2025 10:15 AM EST Telemedicine [facility] MED [facility] PEDS [address] [place] [address] Sandro Cabrera MD [address] [place] [address] documented as of this encounter Visit Diagnoses Not on filedocumented in this encounter Additional Health Concerns Assessment Noted Time PHQ-9 Depression Total Score: 0 10/31/19 24 3:51 PM EDT documented as of this encounter Care Teams Analysis Intern Relationship Specialty Start Date End Date Sandro Cabrera MD [address] [place] [address] PCP - General Internal Medicine 07/21/19 [facility] 07/11/24 documented as of this encounter
--- OUTSIDE RECORDS SUMMARY | 2024-12-27 20:15 | XMS_ITS | Encounter Summary ---
Author Organization [employer] Address [address] [place] [address] Care Team Providers Care Teacher Private Name Role Phone Sandro Cabrera MD Primary Care Prov ider Encounter Details Date Type Department Care Team (Late st Contact Info) Description 05/20/2024 Orders Only [facility] [address] [place], [place] [phone] Sandro Cabrera MD [address] [place], [place] [phone] Vitamin deficiency Social History Tobacco Use Types [...] [facility] [address] [place] [address] Sandro Cabrera MD [address] [place] [address] documented as of this encounter Visit Diagnoses Diagnosis Vitamin deficiency Unspecified vitamin deficiency documented in this encounter Additional Health Concerns Assessment Noted Time PHQ-9 Depression Total Score: 0 10/31/19 24 3:51 PM EDT documented as of this encounter Care Teams Teacher Private Relationship Specialty Start Date End Date Sandro Cabrera MD [address] [place] [address] PCP - General Internal Medicine 07/21/19 [facility] 07/11/24 documented as of this encounter
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
--- OUTSIDE RECORDS SUMMARY | 2024-12-27 20:15 | XMS_ITS | Encounter Summary ---
Author Organization [employer] Address [address] [place] [address] Care Team Providers Care Cogeneration Operator Name Role Phone Sandro Cabrera MD Primary Care Prov ider Reason for Visit * Reason Comments Med Refill Encounter Details Date Type Department Care Team ([facility] st Contact Info) Description 05/15/2024 Refill [facility] [address] [place], [place] [phone] Sandro Cabrera MD [address] [place], [place] [phone] Vitamin deficiency Social History Tobacco Use Types [...] Info) Description 01/27/2025 10:15 AM EST Telemedicine [facility] [address] [place] [address] Sandro Cabrera MD [address] [place] [phone] documented as of this encounter Visit Diagnoses Diagnosis Vitamin deficiency Unspecified vitamin deficiency documented in this encounter Additional Health Concerns Assessment Noted Time PHQ-9 Depression Total Score: 0 10/31/19 24 3:51 PM EDT documented as of this encounter Care Teams Cogeneration Operator Relationship Specialty Start Date End Date Sandro Cabrera MD [address] [place] [address] PCP - General Internal Medicine 07/21/19 [facility] 07/11/24 documented as of this encounter
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
--- OUTSIDE RECORDS SUMMARY | 2024-12-27 20:15 | XMS_ITS | Encounter Summary ---
Author Organization [employer] Address [address] [facility] [address] [place] [address] Care Team Providers Care Pointer Machine Operator Name Role Phone Sandro Cabrera MD Primary Care Prov ider Encounter Details Date Type Department Care Team (Late Contact Info) Description 01/19/2023 Orders Only [facility] MED [facility] P[facility] [address] [place] [address] Toño Elmore MD [address] [place] [address] Social History Tobacco Use Types Packs/Day Years [...] Info) Description 01/27/2025 10:15 AM EST Telemedicine [facility] [address] [place] [address] Sandro Cabrera MD [address] [place] [address] documented as of this encounter Visit Diagnoses Not on filedocumented in this encounter Care Teams Pointer Machine Operator Relationship Specialty Start Date End Date Sandro Cabrera MD [address] [place] [address] PCP - General Internal Medicine 07/21/19 [facility] 07/11/24 documented as of this encounter
--- OUTSIDE RECORDS SUMMARY | 2024-12-27 20:15 | XMS_ITS | Encounter Summary ---
Author Organization [employer] Address [address] [facility] [address] [place] [address] Care Team Providers Care Creosoting Engineer Name Role Phone Sandro Cabrera MD Primary Care Prov ider Encounter Details Date Type Department Care Team (Late st Contact Info) Description 06/06/2023 Orders Only [facility] MEDICINE [address] [place], [place] [phone] Provider, MD Ana Social History Tobacco Use Types Packs/Day Years [...] Info) Description 01/27/2025 10:15 AM EST Telemedicine [facility] MED & PEDS [address] [place] [address] Sandro Cabrera MD [address] [place] [address] documented as of this encounter Procedures Procedure Name Priority Date/Time Associated Diagnosis Comments HM COLONOSCOPY Routine 06/20/2018 7:03 AM EDT documented in this encounter Results * Hm Colonoscopy (06/20/2018 7:03 AM EDT) Historical Provider HEALTH MAINTENANCE Final Result documented in this encounter Visit Diagnoses Not on filedocumented in this encounter Care Teams Creosoting Engineer Relationship Specialty Start Date End Date Sandro Cabrera MD [address] [place] [address] PCP - General Internal Medicine 07/21/19 [facility] 07/11/24 documented as of this encounter
--- OUTSIDE RECORDS SUMMARY | 2024-12-27 20:15 | XMS_ITS | Encounter Summary ---
Author Organization [employer] Address [address] [facility] 7[address] [place] [address] Care Team Providers Care Diesel Engine Operator Name Role Phone Sandro Cabrera MD Primary Care Prov ider Encounter Details Date Type Department Care Team (Late st Contact Info) Description 08/18/2022 Orders Only [facility] [address] [place] [address] Tish Frye LPN Social History Tobacco Use Types Packs/Day Years [...] Info) Description 01/27/2025 10:15 AM EST Telemedicine [facility] [address] [place] [address] Sandro Cabrera MD [address] [place] [address] documented as of this encounter Visit Diagnoses Not on filedocumented in this encounter Care Teams Diesel Engine Operator Relationship Specialty Start Date End Date Sandro Cabrera MD [address] [place] [address] PCP - General Internal Medicine 07/21/19 [facility] 07/11/24 documented as of this encounter
--- OUTSIDE RECORDS SUMMARY | 2024-12-27 20:15 | XMS_ITS | Encounter Summary ---
Author Organization [employer] Address [address] [place] [address] Care Team Providers Care Rn Building Name Role Phone Sandro Cabrera MD Primary Care Prov ider Encounter Details Date Type Department Care Team (Late st Contact Info) Description 12/27/2024 Orders Only GENERIC EXTERNAL DATA DEPARTMENT Provider, Generic External Data Social History Tobacco Use Types Packs/Day Years [...] Upcoming Encounters Date Type Department Care Team ([facility] st Contact Info) Description 01/27/2025 10:15 AM EST Telemedicine [facility] [address] [place] [address] Sandro Cabrera MD [address] [place] [address] documented as of this encounter Procedures Procedure Name Priority Date/Time Associated Diagnosis Comments SARS COV2/INFLUENZA A/B AND RSV RNA QL NAAT Routine 12/27/2024 7:13 PM EST CBC WITH AUTO DIFFERENTIAL Routine 12/27/2024 7:13 PM EST HEPATIC FUNCTION PANEL Routine 12/27/2024 7:13 PM EST BASIC METABOLIC PANEL Routine 12/27/2024 7:13 PM EST documented in this encounter Results * SARS-CoV-2 RNA, Influenza A/B, and RSV RNA, Ql NAAT (12/27/2024 7:13 PM EST) Influenza A PCR NEGATIVE Negative [facility] Influenza B PCR NEGATIVE Negative [facility] Resp Syncy Virus RNA Qual PCR NEGATIVE Negative [facility] SARS COV2 PCR NEGATIVE Negative [facility] Comment:All test results mus t be [...] use by authorized laboratories.Testing performed on the [employer] GeneXpert utilizingreal-time RT-PCR.All SARS CoV2 and positive influenza A/B results arereported to [facility]. 12/27/2024 7:13 PM EST 12/27/2024 7:15 PM EST us Generic External Data Provider LAB MICROBIOLOGY - GENERAL ORDERABLES Final Result [facility] [address] [place] [phone] * (ABNORMAL) Basic Metabolic Panel (12/27/2024 7:13 PM EST) Sodium 141 135 - 145 mmol/L [facility] Potassium 4.2 3.3 - 5.1 mmol/L [facility] Chloride 106 96 - 108 mmol/L [facility] Carbon Dioxide 25 22 - 29 mmol/L [facility] Anion Gap 14 12 - 20 [facility] Urea Nitrogen (BUN) 22(H) 9 - 16 mg/dL [facility] Creatinine, Serum 1.35 0.5 - 1.4 mg/dL [facility] Creatinine Clr Calc Pharmacy 41.7 [facility] Comment:eGFR (calculated fro m the MDRD study equation) and eCrCl(calculated from the Cockcroft-Gault equation) are based ondifferent parameters and may not yield comparable results.If eCrCl result is absurd, please check patient'sheight/weight. Estimated Glomerular Filt Rate 52 [facility] Comment:Chronic Kidney Disea se: Estimated GFR < 60 mL/min/[id number] Kidney Disease: Estimated GFR < 15 mL/min/1.73m2 Glucose 93 60 - 115 mg/dL [facility] Calcium 9.1 8.4 - 10.2 mg/dL [facility] 12/27/2024 7:13 PM EST 12/27/2024 7:15 PM EST Generic External Data Provider LAB BLOOD ORDERAB LES Final Result Performing Organization Address [facility] de Phone Number [facility] [address] [place] [phone] * Hepatic Function Panel (12/27/2024 7:13 PM EST) [facility] Bilirubin, Total 0.5 0.0 - 1.0 mg/dL [facility] Bilirubin, Direct 0.1 0.0 - 0.5 mg/dL [facility] Aspartate Amino Transferase 25 5 - 37 U/L [facility] Alanine Aminotransferase 20 0 - 40 U/L [facility] Total Protein 7.3 6.5 - 8.0 g/dL [facility] Albumin Level 4.2 3.5 - 5.0 g/dL [facility] Alkaline Phosphatase 100 39 - 117 U/L [facility] 12/27/2024 7:13 PM EST 12/27/2024 7:15 PM EST Generic External Data Provider LAB BLOOD ORDERAB LES Final Result Performing Organization Address [facility] Phone Number [facility] [address] [place] [phone] * (ABNORMAL) CBC auto differential (12/27/2024 7:13 PM EST) [facility] White Blood Count 6.4 4.8 - 10.8 X10*3/uL [facility] Red Blood Count 3.96(L) 4.60 - 5.80 X10*6/uL [facility] Hemoglobin 11.8(L) 14.0 - 18.0 g/dl [facility] Hematocrit 36.8(L) 42.0 - 52.0 % [facility] Mean Corpuscular Volume 92.9 80.0 - 98.0 fL [facility] Mean Corpuscular Hemoglobin 29.8 27.0 - 33.0 pg [facility] Mean Corpuscular HGB Conc 32.1 31.0 - 36.0 g/dl [facility] Red Cell Distribution Width 13.6 11.0 - 16.0 % [facility] Platelet Count 142(L) 160 - 400 X10*3/uL [facility] Mean Platelet Volume 9.7 9.4 - 12.4 fL [facility] Neutrophils Percent Auto 49.1 45 - 73 % [facility] Imm Gran Pct Auto 0.3 0.0 - 0.4 % [facility] Lymphocytes Percent Auto 40.2(H) 20 - 40 % [facility] Monocytes Percent Auto 7.1 2 - 11 % [facility] Eosinophils Percent Auto 2.8 0 - 4 % [facility] Basophils Percent Auto 0.5 0 - 2 % [facility] NRBC Pct Auto 0.0 0.0 - 0.2 /100WBC [facility] Neutrophils Absolute Auto 3.1 2.0 - 8.3 x10*3/uL [facility] Imm Gran Abs Auto 0.02 0.00 - 0.03 X10*3/uL [facility] Lymphocytes Absolute Auto 2.6 1.2 - 4.9 X10*3/uL [facility] Monocytes Absolute Auto 0.5 0.1 - 1.2 X10*3/uL [facility] Eosinophils Absolute Auto 0.2 0.0 - 0.4 X10*3/uL [facility] Basophils Absolute Auto 0.0 0.0 - 0.2 X10*3/uL [facility] NRBC Abs Auto 0.000 0.0 - 0.012 X10*3/uL [facility] 12/27/2024 7:13 PM EST 12/27/2024 7:15 PM EST us Generic External Data Provider LAB BLOOD ORDERAB LES Final Result [facility] [address] [place] [phone] documented in this encounter Visit Diagnoses Not on filedocumented in this encounter Additional Health Concerns Assessment Noted Time PHQ-9 Depression Total Score: 0 10/31/19 24 3:51 PM EDT documented as of this encounter Care Teams Rn Building Relationship Specialty Start Date End Date Sandro Cabrera MD [address] [place] [address] PCP - General Internal Medicine 07/21/19 [facility] 07/11/24 documented as of this encounter
--- OUTSIDE RECORDS SUMMARY | 2024-12-27 20:15 | XMS_ITS | Encounter Summary ---
Author Organization [employer] Address [address] [place] [address] Care Team Providers Care Drafting Technician Name Role Phone Sandro Cabrera MD Primary Care Prov ider Encounter Details Date Type Department Care Team (Latest Contact Info) Description 12/27/2024 Travel Social History Tobacco Use Types Packs/Day Years [...] Info) Description 01/27/2025 10:15 AM EST Telemedicine [facility] [address] [place] [address] Sandro Cabrera MD [address] [place] [address] documented as of this encounter Visit Diagnoses Not on filedocumented in this encounter Additional Health Concerns Assessment Noted Time PHQ-9 Depression Total Score: 0 10/31/19 24 3:51 PM EDT documented as of this encounter Care Teams Drafting Technician Relationship Specialty Start Date End Date Sandro Cabrera MD [address] [place] [address] PCP - General Internal Medicine 07/21/19 [facility] 07/11/24 documented as of this encounter
[2024-12-27 20:16] VITALS: BP 113/66; PULSE 84; RESP 14; TEMP 36.8; O2SAT 95
--- NOTE | 2024-12-27 20:27 | MHC.EDTECH ---
condom cath placed on pt with excellent tolerance, RN made aware
[2024-12-27 21:56] LABS: Appearance Urine Clear; Glucose Urine UA Negative (Negative); PH 6.0 (5.0-9.0); Specific Gravity - Urine >= 1.030 (1.005-1.025); UMIC TRIGGER UACC YES
[2024-12-27 22:02] LABS: UACC Culture Trigger YES
[2024-12-27 22:51] VITALS: BP 106/57; PULSE 77; RESP 18; TEMP 36.8; O2SAT 97
[2024-12-27 22:59] VITALS: BP 106/57; PULSE 77; RESP 18; TEMP 36.8; O2SAT 97
== END 2024-12-27 23:00 | disposition home or self-care (01) ==
PROVIDERS: Physician Assistant Medical; Emergency Provider Emergency Medicine; PCP Internal Medicine
DX: R35.0 Frequency of micturition (principal); R30.0 Dysuria; R50.9 Fever, unspecified; F17.210 Nicotine dependence, cigarettes, uncomplicated; Z79.899 Other long term (current) drug therapy; Z03.818 Encounter for observation for suspected exposure to other biological agents ruled out
CPT/HCPCS: 36415; 71046; 80048; 80076; 81001; 81003; 85025; 86140; 87086; 87637; 99284

== ENCOUNTER → 2024-12-27 20:19 | Outpatient (BNV) | payer OTHER, SELFPAY | PROVIDERS: Emergency Provider Emergency Medicine; PCP Internal Medicine; Visit Provider Student in an Organized Health Care Education/Training Program | DX: R50.9 Fever, unspecified (principal) | CPT/HCPCS: 71046 ==